=== PATIENT | female | born 1990 | race Two or more races ===

== ENCOUNTER 2017-04-20 21:58 | Emergency (ER) | payer SELFPAY ==
[~2017-04-20] VITALS: Ht 162.6 cm; Wt 49.9 kg
--- NOTE | 2017-04-20 22:04 | Emergency Room Report ---
History of Present Illness General Chief Complaint: Medical Clearance Source: Patient Present Illness HPI The patient presents in custody with complaints of withdrawal from heroine. She clams she's been doing a gram a day. She last used last night. She's complaining about hot and cold flashes, muscle aches, diarrhea and some abdominal cramps. She denies any vomiting at this time. She has no documented fever. There's no cough or chest pain. She denies having a skin infections. No SI or HI. Denies hepatitis or HIV. States not , LNMP last week. No dysuria. Tetanus UTD. Allergies: Coded Allergies: No Known Allergies (Unverified , 04/20/17) Patient History Past Medical History: see triage record Social History: Reports: smoking, drug use Social History Narrative in custody for shoplifting Reviewed Nursing Documentation: PMH: Agreed, PSxH: Agreed Nursing Documentation-PM Past Medical History: No Stated History Review of Systems All Other Systems: negative except mentioned in HPI Physical Exam Vital Signs Date Time Temp Pulse Resp B/P (MAP) Pulse Ox O2 Delivery O2 Flow Rate FiO2 04/20/17 22:00 97.9 86 17 91/57 98 Room Air General Appearance: no apparent distress, alert, GCS 15, non-toxic, thin Head: normocephalic, atraumatic Eyes: bilateral eye normal inspection, bilateral eye PERRL ENT: hearing grossly normal, normal voice, moist mucus membranes Neck: full range of motion, supple Respiratory: chest non-tender, lungs clear, no respiratory distress, speaking full sentences Cardiovascular #1: normal peripheral pulses, regular rate, rhythm, no edema, no murmur Cardiovascular #2: 2+ radial (L) Gastrointestinal: normal inspection, non tender, soft, scaphoid Musculoskeletal: digits/nails normal, gait/station normal, normal range of motion, no calf tenderness Neurologic: alert, oriented x3, normal gait, grossly normal Psychiatric: no suicidal/homicidal ideation, depressed affect Skin: no rash, other - track gruber bilat antecub, no erythema Medical Decision Making Diagnostic Impression: Primary Impression: Heroin withdrawal ER Course Patient with heroin use in custody. Ddx: withdrawal, anxiety amongst others. VS against severe withdrawal. Will treat symptoms. No catapres indicated. No labs indicated. Patient improved with treatment. Patient stable for outpatient observation and treatment. Last Vital Signs Date Time Temp Pulse Resp B/P (MAP) Pulse Ox O2 Delivery O2 Flow Rate FiO2 04/20/17 23:05 123/80 04/20/17 22:20 97.9 17 98 Room Air 04/20/17 22:00 86 Status: improved Disposition: D/C TO LAW ENFORCEMENT IN CUST Condition: Stable Scripts Ondansetron Odt* (ZOFRAN ODT*) 4 Mg Tab.rapdis 4 MG ORAL Q8H Y for Nausea & Vomiting, #12 TAB 0 Refills Prov: Reese Stafford M.D. 04/20/17 Ibuprofen* (MOTRIN*) 600 Mg Tablet 600 MG ORAL Q6H Y for For Pain, #20 TAB Prov: Reese Stafford M.D. 04/20/17 Acetaminophen (Tylenol) 325 Mg Tablet 650 MG ORAL Q6H Y for Prn Pain/Headache/Temp > 101, #30 TAB 0 Refills Prov: Reese Stafford M.D. 04/20/17 Reese Stafford M.D. Apr 20, 2017 22:04
[2017-04-20] MEDS ORDERED: ZOFRAN ODT4 MG ORAL (22:18)
[2017-04-20] MEDS ORDERED: TYLENOL325 MG ORAL (22:18)
[2017-04-20] MEDS ORDERED: IBUPROFEN600 MG ORAL (22:18)
[2017-04-20 22:20] VITALS: BP 91/57
[2017-04-20 23:05] VITALS: BP 123/80
== END 2017-04-20 23:00 ==
LOC: EMR 22:20
DX: F11.23 Opioid dependence with withdrawal (principal); F17.200 Nicotine dependence, unspecified, uncomplicated
CPT/HCPCS: 99284